=== PATIENT | male | born 1935 | race African-American/Black ===

== ENCOUNTER 2017-07-11 16:50 | Emergency (ER) | payer OTHER ==
[~2017-07-11] VITALS: Ht 175.3 cm; Wt 70.0 kg
[2017-07-11] MEDS ORDERED: ALBUTEROL (0.083%) 2.5MG/3ML NEB HHN STA (16:54)
[2017-07-11 17:37] LABS: CHLORIDE 103 mEq/L (98-107); PROTHROMBIN TIME 10.3 sec (9.4-11.6)
[2017-07-11 17:39] LABS: HEMATOCRIT. 22.4 % (42.0-52.0); HEMOGLOBIN. 7.7 g/dL (14.0-18.0); MEAN CORPUSCULAR HEMOGLOBIN 33.4 pg (28.0-32.0); MEAN CORPUSCULAR VOLUME 96.8 fL (80.0-94.0); MEAN PLATELET VOLUME 7.8 fl (7.4-10.4); PLATELET 220 x1000/uL (130-400); RED BLOOD CELL COUNT 2.31 mill/uL (4.7-6.1); RED CELL DISTRIBUTION WIDTH 17.7 % (11.6-14.6)
[2017-07-11 17:54] LABS: PLATELET ESTIMATE NORMAL
[2017-07-11] MEDS ORDERED: VANCOMYCIN 1 G PREMIX 200 ML IV ONE (18:45)
[2017-07-11] MEDS ORDERED: PIPERACILLIN/TAZ 3.375G PREMIX 50 ML IV ONE (18:45)
[2017-07-11 22:51] VITALS: BP 122/88
== END 2017-07-11 22:51 | disposition short-term general hospital (02) ==
LOC: ER 17:15
DX: R06.03 Acute respiratory distress (principal); N18.6 End stage renal disease; E87.70 Fluid overload, unspecified; J18.9 Pneumonia, unspecified organism; Z99.2 Dependence on renal dialysis
CPT/HCPCS: 36415; 71045; 80053; 82962; 83605; 83880; 84484; 85025; 85610; 87040; 93005; 94640; 96365; 96366; 96367; 99291; J2543; J3370; J7611

== ENCOUNTER 2019-12-15 15:15 | Emergency (ER) | payer OTHER ==
[~2019-12-15] VITALS: Ht 177.8 cm; Wt 66.0 kg
[2019-12-15 16:28] LABS: BASOPHILS % 0.4 % (0.0-2.0); HEMOGLOBIN. 11.5 g/dL (14.0-18.0); LYMPHOCYTES % 8.5 % (20.0-50.0); MEAN CORPUSCULAR HEMOGLOBIN 34.3 pg (28.0-32.0); MEAN CORPUSCULAR VOLUME 101.2 fL (80.0-94.0); MEAN PLATELET VOLUME 8.4 fl (7.4-10.4); MONOCYTES % 5.7 % (2.0-8.0); NEUTROPHILS % 84.4 % (40.0-76.0); PLATELET 178 x1000/uL (130-400); RED BLOOD CELL COUNT 3.36 mill/uL (4.7-6.1)
[2019-12-15 16:31] LABS: CHLORIDE 105 mEq/L (98-107)
[2019-12-15 16:57] LABS: BG BASE EXCESS 7.4 mmol/L (-2.0-2.0); BG CARBOXYHEMOGLOBIN 0.6 % (0.5-1.5); BG DEOXYHEMOGLOBIN 7.1 % (0.0-5.0); BG FRACTION INSPIRED OXYGEN 28; BG HCO3 ACT 31.7 mmol/L (22.0-26.0); BG METHEMOGLOBIN 0.3 % (0.0-1.5); BG OXYGEN SATURATION 92.8 % (92.0-98.5); BG PCO2 43.8 mmHg (35.0-45.0); BG PH 7.478 (7.350-7.450); BG PO2 61.8 mmHg (75.0-100.0); BG SAMPLE SITE RIGHT RADIAL; BG TOTAL HEMOGLOBIN 11.1 g/dL (12.0-18.0); BG VENT MODE NASAL CANNULA
[2019-12-15] MEDS ORDERED: LEVOFLOXACIN 750MG PREMIX 150 ML IV ONE (17:45)
[2019-12-15] MEDS ORDERED: PIPERACILLIN/TAZ 3.375G PREMIX 50 ML IV ONE (17:45)
[2019-12-15] MEDS ORDERED: DILTIAZEM HCL 5MG/ML 5ML VIAL IV NR (17:45)
[2019-12-15 21:40] VITALS: BP 118/61
== END 2019-12-15 22:29 | disposition short-term general hospital (02) ==
LOC: ER 15:15
DX: I48.91 Unspecified atrial fibrillation (principal); R06.03 Acute respiratory distress; I16.0 Hypertensive urgency; I12.0 Hypertensive chronic kidney disease with stage 5 chronic kidney disease or end stage renal disease; N18.6 End stage renal disease; I25.10 Atherosclerotic heart disease of native coronary artery without angina pectoris; E78.00 Pure hypercholesterolemia, unspecified; Z99.2 Dependence on renal dialysis; Z79.01 Long term (current) use of anticoagulants; Z86.19 Personal history of other infectious and parasitic diseases
CPT/HCPCS: 36415; 36600; 71045; 80053; 82375; 82805; 83605; 83880; 84484; 85025; 87040; 93005; 96365; 96368; 96375; 99285; J1956; J2543; J3490